=== PATIENT | female | born 1970 | race Caucasian/White ===

== ENCOUNTER 2017-08-18 12:16 | Emergency (ER) | payer SELFPAY ==
[~2017-08-18] VITALS: Ht 165.1 cm; Wt 60.0 kg
[~2017-08-18 12:16] MED LIST: ACIPHEX20 MG PO; BIOTIN1000 MCG PO; CIPRO XR500 MG PO; CITALOPRAM20 MG PO; DICLOFENAC SODI75 MG PO; DIFLUCAN100 MG PO; DOXYCYC MONO100 MG; FLAGYL500 MG PO; FLEXERIL PO; FLEXERIL10 MG PO; LORTAB 10-325 M1 TAB PO; LORTAB 7.5 PO; OMEPRAZOLE20 MG PO; PERCOCET 5/325M1 TAB PO; PROMETHAZINE25 MG PO; SEA-OMEGA500 MG; ULTRAM50 MG PO; XANAX0.5 MG PO; ZOFRAN ODT4 MG PO; ZOFRAN8 MG OR; [UNRECOGNIZED DRUG - OTHER] PO; [UNRECOGNIZED DRUG - REMARK]
[2017-08-18] MEDS ORDERED: EC-NAPROSYN500 MG PO (12:57)
[2017-08-18] MEDS ORDERED: KEFLEX500 M1 PO (12:57)
[2017-08-18 15:57] VITALS: BP 135/60
== END 2017-08-18 16:05 | disposition home or self-care (01) | DRG 392 ==
LOC: ED 12:16
DX: R10.33 Periumbilical pain (principal)

== ENCOUNTER 2019-05-31 16:40 | Emergency (ER) | payer SELFPAY ==
[~2019-05-31] VITALS: Ht 165.1 cm; Wt 80.0 kg
[~2019-05-31 16:40] MED LIST changes: +EC-NAPROSYN500 MG PO; +KEFLEX500 M1 PO
[2019-05-31] MEDS ORDERED: MEDDOSEPAK PO (18:40)
[2019-05-31] MEDS ORDERED: TORADOL PO (18:40)
[2019-05-31 19:04] VITALS: BP 148/73
== END 2019-05-31 19:00 | disposition home or self-care (01) | DRG 556 ==
LOC: ED 16:40
DX: M25.561 Pain in right knee (principal); C85.90 Non-Hodgkin lymphoma, unspecified, unspecified site; F17.200 Nicotine dependence, unspecified, uncomplicated

== ENCOUNTER 2020-06-21 03:37 | Observation (INO) | payer SELFPAY ==
[~2020-06-21] VITALS: Ht 165.1 cm; Wt 86.8 kg
[~2020-06-21 03:37] MED LIST changes: +MEDDOSEPAK PO; +TORADOL PO
--- NOTE | 2020-06-21 03:40 | NUR ---
PATIENT TO ROOM 6 FOR BEDSIDE TRIAGE. PATIENT APPEARS ANXIOUS, AND IF SHE HAS BEEN CRYING. STATES SHE HAS CHEST PAIN OFTEN RELATED TO HER GRAVE'S DISEASE. HOWEVER, STATES THIS IS WORSE AND MORE CONSTANT THATN HER NORMAL PAIN.
[2020-06-21] MEDS ORDERED: CITALOPRAM40 MG PO (04:05)
[2020-06-21] MEDS ORDERED: VITAMIN D2000 UNI3 PO (04:06)
[2020-06-21] MEDS ORDERED: METHIMAZOLE10 MG PO (04:06)
--- NOTE | 2020-06-21 04:09 | NUR ---
IV ATTEMPTED X 2. LABS OBTAINED.
[2020-06-21 04:34] LABS: HEMATOCRIT 43.8 % (37.0-47.0); HEMOGLOBIN 14.4 g/dl (12.0-16.0); IMMATURE GRANULOCYTES 0.3 % (0.0-5.0); MEAN CELL VOLUME 89.9 fL CALC (80.0-100.0); MEAN CORPUSCULAR HGB 29.6 pG CALC (26.0-32.0); MEAN CORPUSCULAR HGB CONC 32.9 g/dL CAL (32.0-36.0); RED BLOOD COUNT 4.87 mill/uL (4.20-5.60); RED CELL DISTRI WIDTH 11.6 % (11.5-15.5)
[2020-06-21 04:53] LABS: AMYLASE 72 u/l (30-110); ANION GAP 11 (6-22 (CALC)); BILIRUBIN, TOTAL 0.7 mg/dL (0.0-1.4); BUN 12 mg/dL (7-17); BUN/CREATININE RATIO 26 (12-20 (CALC)); CARBON DIOXIDE 23 mmol/l (22-30); CHLORIDE 107 mmol/l (95-108); CREATININE 0.4 mg/dL (0.5-1.0); GFR > 60 ML/MIN (>=60 (CALC)); GFR FOR AFR.AMER. > 60 ML/MIN (>=60 (CALC)); LIPASE 50 u/l (23-300); POTASSIUM 4.4 mmol/l (3.5-5.1); SODIUM 136 mmol/l (137-146)
[2020-06-21 04:54] LABS: ALBUMIN 4.4 g/dL (3.2-5.0); ALKALINE PHOSPHATASE 89 u/l (38-126); SGOT/AST 35 u/l (14-36); TOTAL PROTEIN 7.6 g/dL (6.3-8.2)
--- NOTE | 2020-06-21 05:00 | NUR ---
NO CHANGE IN EXAM PAIN PERSISTS
[2020-06-21 05:05] LABS: MYOGLOBIN 13 ng/mL (0 - 62)
[2020-06-21 05:24] LABS: TSH, 3RD GENERATION < 0.02 uIU/mL (0.47 - 4.68)
--- NOTE | 2020-06-21 06:05 | NUR ---
PAIN RESOLVED WITH MORPHINE.
--- NOTE | 2020-06-21 06:55 | NUR ---
REPORT TO JAKE BLANCO
--- NOTE | 2020-06-21 06:59 | NUR ---
REPORT TAKEN ON PATIENT. PT RESTING ON STRETCHER. COMPLAINS OF EPIGASTRIC PAIN 06/02. AO X 3 SKIN PINK WARM AND DRY. FAMILY MEMBER AT BEDSIDE.
--- NOTE | 2020-06-21 07:13 | NUR ---
MEDICATED WITH [employer] MOUTHW[employer] FOR 7/10 EPIGASTRIC CRAMPING PAIN.
--- NOTE | 2020-06-21 09:40 | NUR ---
DR CHRISTINE AT BEDSIDE TO DISCUSS ADMISSION AND POC.
[2020-06-21 11:15] VITALS: BP 145/63
--- NOTE | 2020-06-21 12:10 | NUR ---
SBAR PRINTED TO FLOOR
--- NOTE | 2020-06-21 12:32 | NUR ---
RESTING ON STRETCHER WITH HOB ELEVATED, MONITORS ATTACHED. FOOD AND PO FLUIDS OFFERED. DENIES ANY NEEDS AT THIS TIME. CALL LIGHT WITHIN REACH.
--- NOTE | 2020-06-21 12:43 | NUR ---
LAB AT BEDSIDE TO OBTAIN SPECIMENS.
--- NOTE | 2020-06-21 14:04 | NUR ---
REPORT REC FROM CHUCK JOSEPH
--- NOTE | 2020-06-21 14:06 | NUR ---
REPORT CALLED TO MED SURG ASIF STARKEY.
--- NOTE | 2020-06-21 14:20 | NUR ---
TO MED SURG VIA WHEELCHAIR, TELE MONITOR IN PLACE.
[2020-06-21 14:23] VITALS: BP 126/81
--- NOTE | 2020-06-21 14:23 | NUR ---
PT ARRIVED TO NE VIA ACCOMPANIED BY MATILDE JOSEPH. PT A&O X3. NO DISTRESS NOTED. PT DENIES ANY CP AT THIS TIME. ORIENTED PT TO ROOM. ASSESSMENT COMPLETED.CALL LIGHT WITHIN REACH.CONTINUE TO MONITOR.
--- NOTE | 2020-06-21 16:40 | NUR ---
PT C/O OF CHEST PAIN RADIATING TO THE SHOULDER. HEATHER SETHI NOTIFIED
--- NOTE | 2020-06-21 16:49 | NUR ---
PT GIVEN 40 MG IV PROTONIX AND NITRO PASTE WHICH WAS APPLIED TO LT SIDE OF THE CHEST. WILL CONTINUE TO MONITOR.
[2020-06-21 17:55] VITALS: BP 135/65
[2020-06-21 19:26] VITALS: BP 124/76
--- NOTE | 2020-06-21 20:17 | NUR ---
ASSESSMENT COMPLETED.CONTINUES TO REPORT THAT EPIGASTRIC PAIN AND CP REMAINS THE SAME WITH NO RELIEF. OFFERED TO CALL MD JUMP ROLL OPERATOR FOR FURTHER MEDS AND PT. DECLINES; DOES REPORT GUTIERREZ FROM NITRO OINTMENT AND MEDICATED WITH ORDERED PRN TYLENOL AND DIET COKE PROVIDED. TELEMETRY IN PLACE. INSTRUCTED TO CALL IF PAIN INCREASES OR IF SHE WOULD LIKE TO CALL PROVIDER JUMP ROLL OPERATOR FOR FURTHER MEDS; CALL LIGHT IS IN REACH. WILL CONTINUE TO MONITOR.
--- NOTE | 2020-06-21 23:40 | NUR ---
PT. RESTING IN BED WITH NO DISTRESS NOTED; DENIES NEEDS. VOICES NO CONCERNS. VSS. ENCOURAGED TO CALL FOR ANY NEEDS.
[2020-06-21 23:41] VITALS: BP 119/57
[2020-06-22 04:29] VITALS: BP 128/82
--- NOTE | 2020-06-22 04:30 | NUR ---
PT. C/O GUTIERREZ AND MEDICATED WITH ORDERED PRN TYLENOL AND DIET COKE PROVIDED. WILL REASSESS. NITRO OINTMENT REMOVED FROM LEFT CHEST.
[2020-06-22 05:31] LABS: HEMATOCRIT 40.8 % (37.0-47.0); HEMOGLOBIN 13.3 g/dl (12.0-16.0); MEAN CELL VOLUME 90.9 fL CALC (80.0-100.0); MEAN CORPUSCULAR HGB 29.6 pG CALC (26.0-32.0); MEAN CORPUSCULAR HGB CONC 32.6 g/dL CAL (32.0-36.0); RED BLOOD COUNT 4.49 mill/uL (4.20-5.60); RED CELL DISTRI WIDTH 11.6 % (11.5-15.5)
--- NOTE | 2020-06-22 05:53 | NUR ---
PT. C/O CHEST PAIN 10 AND VS OBTIANED AND ARE STABLE. NITRO OINTMENT APPLIED PER ORDER AND RT NOTIFIED FOR NEED OF EKG.
[2020-06-22 05:59] LABS: ANION GAP 10 (6-22 (CALC)); BUN 9 mg/dL (7-17); BUN/CREATININE RATIO 21 (12-20 (CALC)); CALCULATED LDLCHOLESTEROL 87 mg/dL (62-129 (CALC)); CARBON DIOXIDE 24 mmol/l (22-30); CHLORIDE 106 mmol/l (95-108); CHOLESTEROL HDL RATIO 3.1 (<4.4 (CALC)); CREATININE 0.5 mg/dL (0.5-1.0); GFR > 60 ML/MIN (>=60 (CALC)); GFR FOR AFR.AMER. > 60 ML/MIN (>=60 (CALC)); HDL CHOLESTEROL 51 mg/dL (>=40); MAGNESIUM 1.9 mg/dL (1.6-2.3); POTASSIUM 4.4 mmol/l (3.5-5.1); SODIUM 136 mmol/l (137-146); TOTAL CHOLESTEROL 156 mg/dl (0-199); TOTAL TRIGLYCERIDES 93 mg/dl (30-149); VLDL CHOLESTROL 19 mg/dl (2-49 (CALC))
--- NOTE | 2020-06-22 06:10 | NUR ---
NOTIFIED DR. CHRISTINE OF PT'S C/O CP 06/02 AND PLACING NITRO AND OFF ALL TROPONINS INCLUDING AM ONE ARE NEGATIVE AND THAT EKG IS READY TO REVIEW; WELL PT. REPORTING SLIGHT DECREASE POST NITRO PLACEMENT.
--- NOTE | 2020-06-22 06:35 | NUR ---
PT. SITTING UP IN BED CALM. REPORTS SLIGHT RELIEF. NO DISTRESS NOTED.
[2020-06-22 08:00] VITALS: BP 142/88
--- NOTE | 2020-06-22 08:00 | NUR ---
PT IS ALERT AND ORIENTED X 3, AMBULATORY IN ROOM WITHOUT DIFFICULTY. LUNGS CLEAR, RA. NO REPORT OF CHEST PAIN OR SHORTNESS OF BREATH.
[2020-06-22] MEDS ORDERED: PROTONIX40 M2 PO (09:37)
--- NOTE | 2020-06-22 10:36 | NUR ---
PT HAS BEEN DISCHARGED TO HOME. PT VERBALIZES UNDERSTANDING OF DC INSTRUCTIONS, IV REMOVED, TELE OFF, THEN WAS TAKEN BY WHEELCHAIR TO LOBBY TO WAIT FOR HER DAUGHTER. PT LEAVES [facility] IN STABLE CONDITION.
== END 2020-06-22 10:19 | disposition home or self-care (01) | DRG 313 ==
LOC: ED 03:37 → ED-I 07:40 → ED 08:17 → ED-I 08:18 → MS2 14:23
PROVIDERS: Emergency Medicine; ADMIT Internal Medicine; ATTEND Internal Medicine
DX: R07.89 Other chest pain (principal); C85.90 Non-Hodgkin lymphoma, unspecified, unspecified site; R10.13 Epigastric pain; K21.9 Gastro-esophageal reflux disease without esophagitis; E05.00 Thyrotoxicosis with diffuse goiter without thyrotoxic crisis or storm; F32.9 Major depressive disorder, single episode, unspecified; M79.7 Fibromyalgia; F17.290 Nicotine dependence, other tobacco product, uncomplicated; Z91.14 Patient's other noncompliance with medication regimen; Z87.11 Personal history of peptic ulcer disease; Z79.899 Other long term (current) drug therapy; Z20.828 Contact with and (suspected) exposure to other viral communicable diseases
CPT/HCPCS: G0378; J1650; Q9967; S0164

== ENCOUNTER 2020-12-19 09:25 | Emergency (ER) | payer SELFPAY ==
[~2020-12-19] VITALS: Ht 165.1 cm; Wt 80.0 kg
[~2020-12-19 09:25] MED LIST changes: +CITALOPRAM40 MG PO; +METHIMAZOLE10 MG PO; +PROTONIX40 M2 PO; +VITAMIN D2000 UNI3 PO
[2020-12-19 12:25] LABS: IMMATURE GRANULOCYTES 0.2 % (0.0-5.0); MEAN CORPUSCULAR HGB 31.5 pG CALC (26.0-32.0); MEAN CORPUSCULAR HGB CONC 33.8 g/dL CAL (32.0-36.0); NEUT# 3.63 thou/uL (2.00-7.15); RED BLOOD COUNT 5.15 mill/uL (4.20-5.60); RED CELL DISTRI WIDTH 10.6 % (11.5-15.5)
[2020-12-19 12:32] LABS: HEMATOCRIT 47.9 % (37.0-47.0); HEMOGLOBIN 16.2 g/dl (12.0-16.0)
[2020-12-19 12:51] LABS: ALBUMIN 4.8 g/dL (3.2-5.0); ALKALINE PHOSPHATASE 72 u/l (38-126); AMYLASE 46 u/l (30-110); ANION GAP 13 (6-22 (CALC)); BILIRUBIN, TOTAL 0.7 mg/dL (0.0-1.4); BUN 12 mg/dL (7-17); BUN/CREATININE RATIO 25 (12-20 (CALC)); CARBON DIOXIDE 26 mmol/l (22-30); CHLORIDE 104 mmol/l (95-108); CREATININE 0.5 mg/dL (0.5-1.0); GFR > 60 ML/MIN (>=60 (CALC)); GFR FOR AFR.AMER. > 60 ML/MIN (>=60 (CALC)); LIPASE 84 u/l (23-300); POTASSIUM 4.3 mmol/l (3.5-5.1); SGOT/AST 36 u/l (14-36); SODIUM 138 mmol/l (137-146); TOTAL PROTEIN 7.9 g/dL (6.3-8.2)
[2020-12-19] MEDS ORDERED: DICYCLOMINE10 MG PO (17:25)
[2020-12-19 17:47] VITALS: BP 143/96
== END 2020-12-19 17:45 | disposition home or self-care (01) | DRG 392 ==
LOC: ED 09:25
PROVIDERS: Family Medicine
DX: A08.4 Viral intestinal infection, unspecified (principal); C85.90 Non-Hodgkin lymphoma, unspecified, unspecified site; E05.00 Thyrotoxicosis with diffuse goiter without thyrotoxic crisis or storm; F17.200 Nicotine dependence, unspecified, uncomplicated; Z20.822 Contact with and (suspected) exposure to COVID-19
CPT/HCPCS: Q9967

== ENCOUNTER 2021-06-10 12:25 | Emergency (ER) | payer SELFPAY ==
[~2021-06-10] VITALS: Ht 162.6 cm; Wt 77.3 kg
[~2021-06-10 12:25] MED LIST changes: +DICYCLOMINE10 MG PO
[2021-06-10 12:54] LABS: HEMATOCRIT 43.2 % (37.0-47.0); HEMOGLOBIN 14.4 g/dl (12.0-16.0); IMMATURE GRANULOCYTES 0.1 % (0.0-5.0); MEAN CELL VOLUME 94.9 fL CALC (80.0-100.0); MEAN CORPUSCULAR HGB 31.6 pG CALC (26.0-32.0); MEAN CORPUSCULAR HGB CONC 33.3 g/dL CAL (32.0-36.0); NEUT# 3.43 thou/uL (2.00-7.15); RED BLOOD COUNT 4.55 mill/uL (4.20-5.60); RED CELL DISTRI WIDTH 11.8 % (11.5-15.5)
[2021-06-10 13:07] LABS: ALBUMIN 4.4 g/dL (3.2-5.0); ALKALINE PHOSPHATASE 61 u/l (38-126); ANION GAP 13 (6-22 (CALC)); BILIRUBIN, TOTAL 0.8 mg/dL (0.0-1.4); BUN 10 mg/dL (7-17); BUN/CREATININE RATIO 16 (12-20 (CALC)); CARBON DIOXIDE 22 mmol/l (22-30); CHLORIDE 108 mmol/l (95-108); CREATININE 0.6 mg/dL (0.5-1.0); GFR > 60 ML/MIN (>=60 (CALC)); GFR FOR AFR.AMER. > 60 ML/MIN (>=60 (CALC)); POTASSIUM 4.7 mmol/l (3.5-5.1); SGOT/AST 30 u/l (14-36); SODIUM 138 mmol/l (137-146); TOTAL PROTEIN 7.6 g/dL (6.3-8.2)
[2021-06-10 13:19] LABS: MYOGLOBIN 25 ng/mL (0 - 62)
[2021-06-10 13:38] LABS: TSH, 3RD GENERATION < 0.02 uIU/mL (0.47 - 4.68)
[2021-06-10 14:51] LABS: URINE BILIRUBIN - DIPSTICK NEGATIVE (NEGATIVE); URINE BLOOD DIPSTICK NEGATIVE (NEGATIVE); URINE COLOR YELLOW; URINE GLUCOSE - DIPSTICK NEGATIVE (NEGATIVE); URINE KETONE NEGATIVE (NEGATIVE); URINE LEUK ESTERASE NEGATIVE (NEGATIVE); URINE PH 7.5 (4.5-8.0); URINE PROTEIN - DIPSTICK NEGATIVE (NEG-TRACE); URINE UROBILINOGEN - DIPSTICK 0.2 E.U./dL (0.2)
[2021-06-10 15:06] LABS: URINE NITRITE - DIPSTICK NEGATIVE (Negative)
[2021-06-10 15:35] VITALS: BP 140/67
== END 2021-06-10 15:45 | disposition home or self-care (01) | DRG 923 ==
LOC: ED 12:25
PROVIDERS: Emergency Medicine
DX: T67.5XXA Heat exhaustion, unspecified, initial encounter (principal); C85.90 Non-Hodgkin lymphoma, unspecified, unspecified site; E05.00 Thyrotoxicosis with diffuse goiter without thyrotoxic crisis or storm; X30.XXXA Exposure to excessive natural heat, initial encounter; Y93.E9 Activity, other interior property and clothing maintenance; Z20.822 Contact with and (suspected) exposure to COVID-19

== ENCOUNTER 2021-09-17 17:07 | Emergency (ER) | payer SELFPAY ==
[~2021-09-17] VITALS: Ht 162.6 cm; Wt 75.0 kg
[2021-09-17 19:22] LABS: HEMATOCRIT 44.6 % (37.0-47.0); HEMOGLOBIN 14.9 g/dl (12.0-16.0); IMMATURE GRANULOCYTES 0.1 % (0.0-5.0); MEAN CELL VOLUME 94.7 fL CALC (80.0-100.0); MEAN CORPUSCULAR HGB 31.6 pG CALC (26.0-32.0); MEAN CORPUSCULAR HGB CONC 33.4 g/dL CAL (32.0-36.0); NEUT# 4.29 thou/uL (2.00-7.15); RED BLOOD COUNT 4.71 mill/uL (4.20-5.60); RED CELL DISTRI WIDTH 12.1 % (11.5-15.5)
[2021-09-17 19:39] LABS: ALBUMIN 4.4 g/dL (3.2-5.0); ALKALINE PHOSPHATASE 70 u/l (38-126); AMYLASE 49 u/l (30-110); ANION GAP 12 (6-22 (CALC)); BILIRUBIN, TOTAL 0.9 mg/dL (0.0-1.4); BUN 11 mg/dL (7-17); BUN/CREATININE RATIO 17 (12-20 (CALC)); CARBON DIOXIDE 25 mmol/l (22-30); CHLORIDE 105 mmol/l (95-108); CREATININE 0.7 mg/dL (0.5-1.0); GFR > 60 ML/MIN (>=60 (CALC)); GFR FOR AFR.AMER. > 60 ML/MIN (>=60 (CALC)); LIPASE 69 u/l (23-300); POTASSIUM 4.5 mmol/l (3.5-5.1); SGOT/AST 24 u/l (14-36); SODIUM 138 mmol/l (137-146); TOTAL PROTEIN 7.2 g/dL (6.3-8.2)
[2021-09-17] MEDS ORDERED: PROTONIX40 MG PO (20:19)
[2021-09-17 21:38] VITALS: BP 142/81
== END 2021-09-17 21:48 | disposition home or self-care (01) | DRG 392 ==
LOC: ED 17:07
PROVIDERS: Emergency Medicine
DX: R10.31 Right lower quadrant pain (principal); R10.30 Lower abdominal pain, unspecified; C85.90 Non-Hodgkin lymphoma, unspecified, unspecified site; E05.00 Thyrotoxicosis with diffuse goiter without thyrotoxic crisis or storm

== ENCOUNTER 2021-10-02 15:00 | Emergency (ER) | payer SELFPAY ==
[~2021-10-02] VITALS: Ht 162.6 cm; Wt 77.0 kg
[~2021-10-02 15:00] MED LIST changes: +PROTONIX40 MG PO
[2021-10-02] MEDS ORDERED: KLONOPIN0.5 M1 PO (15:16)
[2021-10-02 15:41] LABS: IMMATURE GRANULOCYTES 0.1 % (0.0-5.0); MEAN CELL VOLUME 95.9 fL CALC (80.0-100.0); MEAN CORPUSCULAR HGB 32.4 pG CALC (26.0-32.0); MEAN CORPUSCULAR HGB CONC 33.8 g/dL CAL (32.0-36.0); NEUT# 4.15 thou/uL (2.00-7.15); RED BLOOD COUNT 3.95 mill/uL (4.20-5.60); RED CELL DISTRI WIDTH 12.6 % (11.5-15.5)
[2021-10-02 16:01] LABS: ALBUMIN 3.6 g/dL (3.2-5.0); ALKALINE PHOSPHATASE 48 u/l (38-126); ANION GAP 8 (6-22 (CALC)); BUN 11 mg/dL (7-17); BUN/CREATININE RATIO 17 (12-20 (CALC)); CARBON DIOXIDE 26 mmol/l (22-30); CHLORIDE 108 mmol/l (95-108); CREATININE 0.6 mg/dL (0.5-1.0); GFR > 60 ML/MIN (>=60 (CALC)); GFR FOR AFR.AMER. > 60 ML/MIN (>=60 (CALC)); POTASSIUM 3.7 mmol/l (3.5-5.1); SGOT/AST 19 u/l (14-36); SODIUM 139 mmol/l (137-146); TOTAL PROTEIN 6.1 g/dL (6.3-8.2)
[2021-10-02 16:04] LABS: HEMATOCRIT 37.9 % (37.0-47.0); HEMOGLOBIN 12.8 g/dl (12.0-16.0)
[2021-10-02 16:06] LABS: BILIRUBIN, TOTAL 0.4 mg/dL (0.0-1.4)
[2021-10-02 16:39] VITALS: BP 102/65
== END 2021-10-02 17:03 | disposition home or self-care (01) | DRG 312 ==
LOC: ED 15:00
PROVIDERS: Family Medicine
DX: R55 Syncope and collapse (principal); C85.90 Non-Hodgkin lymphoma, unspecified, unspecified site; E05.00 Thyrotoxicosis with diffuse goiter without thyrotoxic crisis or storm; F17.290 Nicotine dependence, other tobacco product, uncomplicated

== ENCOUNTER 2023-12-01 19:55 | Emergency (ER) | payer SELFPAY ==
[~2023-12-01] VITALS: Ht 162.6 cm; Wt 80.2 kg
[~2023-12-01 19:55] MED LIST changes: +KLONOPIN0.5 M1 PO
[2023-12-01] MEDS ORDERED: LEVAQUIN750 M1 PO (20:34)
[2023-12-01 20:43] VITALS: BP 128/71
== END 2023-12-01 20:52 | disposition home or self-care (01) | DRG 603 ==
LOC: ED 19:55
DX: L03.113 Cellulitis of right upper limb (principal); S50.811A Abrasion of right forearm, initial encounter; C85.90 Non-Hodgkin lymphoma, unspecified, unspecified site; E05.00 Thyrotoxicosis with diffuse goiter without thyrotoxic crisis or storm; W54.8XXA Other contact with dog, initial encounter; F17.200 Nicotine dependence, unspecified, uncomplicated; Z79.52 Long term (current) use of systemic steroids